=== PATIENT | female | born 1955 | race Two or more races ===

== ENCOUNTER 2020-03-29 20:13 | Emergency (ER) | payer OTHER ==
[~2020-03-29] VITALS: Ht 160 cm; Wt 56.2 kg
[2020-03-29] MEDS ORDERED: SYNTHROID50 MCG (20:20)
[2020-03-29] MEDS ORDERED: CLONAZEPAM1 MG (20:20)
[2020-03-30] MEDS ORDERED: CIPRO500 MG PO (02:57)
[2020-03-30] MEDS ORDERED: FLAGYL500MG PO (02:57)
[2020-03-30] MEDS ORDERED: OMEPRAZOLE40 MG PO (02:57)
[2020-03-30] MEDS ORDERED: LEVSIN/SL0.125 MG SL (02:57)
== END 2020-03-30 05:10 | disposition home or self-care (01) ==
LOC: ER 20:13
DX: G43.809 Other migraine, not intractable, without status migrainosus (principal); K57.32 Diverticulitis of large intestine without perforation or abscess without bleeding; Z03.818 Encounter for observation for suspected exposure to other biological agents ruled out; R53.1 Weakness; R10.32 Left lower quadrant pain

== ENCOUNTER 2020-09-14 09:52 | Emergency (ER) | payer OTHER ==
[~2020-09-14] VITALS: Ht 160 cm; Wt 56.7 kg
[~2020-09-14 09:52] MED LIST: CIPRO500 MG PO; CLONAZEPAM1 MG; FLAGYL500MG PO; LEVSIN/SL0.125 MG SL; OMEPRAZOLE40 MG PO; SYNTHROID50 MCG
== END 2020-09-14 14:53 | disposition home or self-care (01) ==
LOC: ER 09:52
DX: K57.30 Diverticulosis of large intestine without perforation or abscess without bleeding (principal); E07.89 Other specified disorders of thyroid; R10.32 Left lower quadrant pain; Z03.818 Encounter for observation for suspected exposure to other biological agents ruled out

== ENCOUNTER 2021-02-10 07:50 | Emergency (ER) | payer OTHER ==
[~2021-02-10] VITALS: Ht 160 cm; Wt 59.0 kg
[2021-02-10] MEDS ORDERED: NEURONTIN300 MG (07:58)
[2021-02-10] MEDS ORDERED: TORADOL60 MG IM (10:42)
[2021-02-10] MEDS ORDERED: SKELAXIN800 MG PO (10:42)
[2021-02-10] MEDS ORDERED: LEVOTHYROXINE75 MC1 PO (10:42)
[2021-02-10] MEDS ORDERED: DICLOFENAC POTA50 MG PO (10:42)
[2021-02-10] MEDS ORDERED: ORPHENADRI30 MG/1 M1 IM (10:42)
[2021-02-10] MEDS ORDERED: PEPCID AC20 MG PO (10:42)
[2021-02-10] MEDS ORDERED: PROTONIX40 MG PO (10:42)
[2021-02-10] MEDS ORDERED: CLONAZEPAM2 MG PO (10:42)
== END 2021-02-10 10:46 | disposition home or self-care (01) ==
LOC: ER 07:50
DX: M54.5 Low back pain (principal); M62.830 Muscle spasm of back

== ENCOUNTER → 2021-06-17 | Emergency (ER) | payer OTHER ==
[~2021-06-17] VITALS: Ht 157.5 cm; Wt 56.7 kg
[~2021-06-17] MED LIST changes: +CLONAZEPAM2 MG PO; +DICLOFENAC POTA50 MG PO; +LEVOTHYROXINE75 MC1 PO; +NEURONTIN300 MG; +ORPHENADRI30 MG/1 M1 IM; +PEPCID AC20 MG PO; +PROTONIX40 MG PO; +SKELAXIN800 MG PO; +TORADOL60 MG IM
== END | disposition home or self-care (01) ==
LOC: ER 16:09
DX: K57.92 Diverticulitis of intestine, part unspecified, without perforation or abscess without bleeding (principal); R10.32 Left lower quadrant pain

== ENCOUNTER 2021-12-04 18:16 | Emergency (ER) | payer OTHER ==
[~2021-12-04] VITALS: Ht 160 cm; Wt 54.9 kg
[2021-12-04] MEDS ORDERED: WELLBUTRIN XL300 MG (18:25)
[2021-12-04] MEDS ORDERED: SYNTHROID75 MCG (18:25)
[2021-12-04] MEDS ORDERED: CARAFATE1 GM PO (21:06)
[2021-12-04] MEDS ORDERED: PEPCID AC20 MG PO (21:06)
[2021-12-04] MEDS ORDERED: DICY20TA PO (21:06)
== END 2021-12-04 21:31 | disposition home or self-care (01) ==
LOC: ER 18:16
DX: K29.60 Other gastritis without bleeding (principal); E03.9 Hypothyroidism, unspecified; Z88.2 Allergy status to sulfonamides